=== PATIENT | male | born 1980 | race Two or more races ===

== ENCOUNTER 2021-09-23 19:49 | Emergency (ER) | payer OTHER ==
[~2021-09-23] VITALS: Ht 182.9 cm; Wt 78.9 kg
--- NOTE | 2021-09-23 20:36 | NUR ---
TO ER BED 7. BIBS C/O SOME CHEST DISCOMFORT X4DAYS COVID POS, YESTERDAY CONCERNED FOR PENUMONIA. TOOK TYLENOL WITH NO RELIEF. AAOX4. AMBULATORY W/ STEADY GAIT. BREATHING IS EVEN AND NONLABORED. CONNECTED TO MONITOR. VSS. AWAITING MD MORALES
--- NOTE | 2021-09-23 21:55 | NUR ---
Patient discharged to home in stable condition. Written and verbal after care instructions given. Patient verbalizes understanding of instruction.
[2021-09-23 22:03] VITALS: BP 120/80
== END 2021-09-23 22:00 | disposition home or self-care (01) ==
LOC: ER 20:10
DX: U07.1 COVID-19 (principal); R07.89 Other chest pain
CPT/HCPCS: 71045-TC

== ENCOUNTER 2023-03-16 05:46 | Emergency (ER) | payer OTHER ==
[~2023-03-16] VITALS: Ht 182.9 cm; Wt 81.6 kg
[2023-03-16] MEDS ORDERED: methylPREDNISolone SOD SUCC 125 MG/2ML VIAL ONE (06:28)
[2023-03-16] MEDS ORDERED: diphenhydrAMINE HCL 50 MG/ML VIAL ONE (06:28)
[2023-03-16] MEDS ORDERED: EPINEPHRINE (1:1000) 1 MG/ML AMPUL ONE (06:28)
[2023-03-16] MEDS ORDERED: FAMOTIDINE/PF INJ 20 MG/2 ML VIAL IV ONE (06:28)
[2023-03-16] MEDS ORDERED: FAMOTIDINE/PF INJ 40 MG in IV D5W 250 ML IV ONE (06:30)
[2023-03-16] MEDS ORDERED: methylPREDNISolone SOD SUCC 125 MG/2ML VIAL IV ONE (06:30)
[2023-03-16] MEDS ORDERED: diphenhydrAMINE HCL 50 MG/ML VIAL IV ONE (06:30)
[2023-03-16] MEDS ORDERED: EPINEPHRINE (1:1000) 1 MG/ML AMPUL SUBCUT ONE (06:30)
[2023-03-16] MEDS ORDERED: IV NS 0.9% 1,000 ML BAG IV ONE (06:30)
[2023-03-16] MEDS ORDERED: IOHEXOL-300 100 ML VIAL IV ONE (06:40)
[2023-03-16] MEDS ORDERED: IV NS 0.9% 250 ML IV ONE (06:40)
[2023-03-16] MEDS ORDERED: CT SWABBABLE VALVE TRANS SET 1 EA INFUS.SET MC ONE (06:40)
[2023-03-16 07:02] LABS: BASOPHILS % (AUTO) 0.8 % (0.0-2.0); EOSINOPHILS # (AUTO) 0.1 K/uL (0.0-0.7); EOSINOPHILS % (AUTO) 3.3 % (0.0-6.0); HEMATOCRIT 45 % (39-51); HEMOGLOBIN 15.2 g/dL (13.5-17.5); LYMPHOCYTES # (AUTO) 1.4 K/uL (0.8-4.8); LYMPHOCYTES % (AUTO) 31.1 % (20.0-44.0); MEAN CORPUSCULAR HEMOGLOBIN 31 PG (26.0-33.0); MEAN CORPUSCULAR HGB CONC 34 g/dl (31.0-36.0); MEAN CORPUSCULAR VOLUME 91 fL (80-96); MONOCYTES # (AUTO) 0.5 K/uL (0.1-1.30); MONOCYTES % (AUTO) 10.4 % (2.0-12.0); NEUTROPHILS # (AUTO) 2.4 K/uL (1.8-8.9); NEUTROPHILS % (AUTO) 54.4 % (43.0-81.0); PLATELET COUNT (AUTO) 192 K/uL (150-450); RED BLOOD CELL COUNT(AUTO) 4.97 MIL/uL (4.5-6.0); RED CELL DISTRIBUTION WIDTH 13.5 % (11.5-15.0); WHITE BLOOD COUNT (AUTO) 4.4 K/uL (4.3-11.0)
[2023-03-16 07:15] LABS: CALCIUM, SERUM 8.7 mg/dL (8.5-10.1); POTASSIUM 3.6 mmol/L (3.5-5.1)
[2023-03-16 07:21] LABS: INR 0.99 (0.91-1.10); PARTIAL THROMBOPLASTIN TIME 27.9 SEC (24.3-34.3); PROTHROMBIN TIME 10.5 SECS (9.2-11.1)
[2023-03-16] MEDS ORDERED: PRED50TA PO (08:43)
[2023-03-16] MEDS ORDERED: AZIT250T PO (08:43)
[2023-03-16 09:36] VITALS: BP 137/75; TEMP 98.3; O2SAT 98
== END 2023-03-16 09:36 | disposition home or self-care (01) ==
LOC: ER 05:49
DX: J03.90 Acute tonsillitis, unspecified (principal); H20.9 Unspecified iridocyclitis; M54.2 Cervicalgia; Z88.0 Allergy status to penicillin
CPT/HCPCS: 36415; 70491; 80048; 85025; 85730; 87804; 87880; 96365; 96372; 96375; 99285; J0171; J1200; J2930; J3490; J7030; J7050; Q9967; 86403-TC; J7060